=== PATIENT | female | born 1975 | race Caucasian/White ===

== ENCOUNTER 2019-01-19 18:44 | Emergency (ER) | payer MEDICAID ==
[~2019-01-19] VITALS: Ht 167.6 cm; Wt 65.8 kg
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
--- NOTE | 2019-01-19 19:49 | NUR ---
XRAY AT BEDSIDE. PREG TEST: NEG
--- NOTE | 2019-01-19 20:46 | NUR ---
Patient discharged to home in stable condition. Written and verbal after care instructions given. Patient verbalizes understanding of instruction. Pt ambulatory with limp but on a steady gait
[2019-01-19 20:47] VITALS: BP 108/65
== END 2019-01-19 20:48 | disposition home or self-care (01) ==
LOC: ER 18:50
DX: S93.504A Unspecified sprain of right lesser toe(s), initial encounter (principal); W22.8XXA Striking against or struck by other objects, initial encounter; Y93.89 Activity, other specified; Y92.89 Other specified places as the place of occurrence of the external cause; Y99.8 Other external cause status
CPT/HCPCS: 73660-TC; 84703-TC

== ENCOUNTER 2020-10-17 19:24 | Emergency (ER) | payer MEDICAID, OTHER ==
[~2020-10-17] VITALS: Ht 167.6 cm; Wt 61.2 kg
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
[2020-10-17] MEDS ORDERED: KETOROLAC TROMETHAMINE INJ 30 MG/ML VIAL IV ONE (20:30)
[2020-10-17] MEDS ORDERED: IV NS 0.9% 1,000 ML IV ONE (20:30)
[2020-10-17] MEDS ORDERED: METOCLOPRAMIDE HCL 10 MG/2 ML VIAL IV ONE (20:30)
--- NOTE | 2020-10-17 20:36 | NUR ---
urine sent to lab
[2020-10-17] MEDS ORDERED: KETOROLAC TROMETHAMINE 15 MG/ML VIAL ONE (20:57)
[2020-10-17] MEDS ORDERED: METOCLOPRAMIDE HCL 10 MG/2 ML VIAL ONE (20:57)
[2020-10-17] MEDS ORDERED: IBUP-1955 PO (21:21)
[2020-10-17] MEDS ORDERED: POLY10DR EACHEYE (21:25)
[2020-10-17 22:14] VITALS: BP 112/63
--- NOTE | 2020-10-17 22:15 | NUR ---
Patient discharged to home in stable condition. Rx and Written and verbal after care instructions given. Patient verbalizes understanding of instruction. ambulatory with a steady gait.
== END 2020-10-17 22:15 | disposition home or self-care (01) ==
LOC: ER 19:27
DX: R51.9 Headache, unspecified (principal); H10.9 Unspecified conjunctivitis; E86.0 Dehydration; E78.5 Hyperlipidemia, unspecified; Z98.890 Other specified postprocedural states; Z79.899 Other long term (current) drug therapy
CPT/HCPCS: 84703; 96361; 96374; 96375; 99284; J1885; J2765; J7030